=== PATIENT | female | born 1985 | race Caucasian/White ===

== ENCOUNTER 2023-05-19 10:12 | Outpatient (CLI) | payer SELFPAY ==
--- NOTE | ~2023-05-19 | US_ITS ---
Pelvic ultrasound. Clinical History: First trimester , inconclusive viability Technique: Realtime transabdominal and transvaginal scanning of the pelvis was performed. Color flow Doppler and Doppler spectral analysis were performed. Findings: The uterus is anteverted, and contains an intrauterine gestation. Rentz-rump length of 2.3 cm corresponds to an estimated gestational age of 9 weeks 0 days. heart rate is 180 bpm. Yolk s ac also present. The right ovary measures 3.0 x 2.6 x 2.3 cm. No significant right ovarian or adnexal mass is seen. The left ovary is not visualized. No significant left ovarian or adnexal mass is seen. There is no evidence of free fluid in the cul de sac. Impression: Live intrauterine gestation with estimated gestational age of 9 weeks 0 days. heart rate is 180 bpm. Reviewed, dictated and finalized at [facility]. Impression: Live intrauterine gestation with estimated gestational age of 9 weeks 0 days. F etal heart rate is 180 bpm.
== END 2023-05-19 10:13 | disposition home or self-care (01) ==
PROVIDERS: PCP Physician Assistant; Visit Provider Advanced Practice Midwife
DX: O36.80X0 Pregnancy with inconclusive fetal viability, not applicable or unspecified (principal); Z3A.09 9 weeks gestation of pregnancy
CPT/HCPCS: 76801

== ENCOUNTER 2023-11-16 18:46 | Observation (INO) | payer BC, SELFPAY ==
[2023-11-16] VITALS (7 sets, daily range): BP systolic 124–158; BP diastolic 74–105; PULSE 88–100
--- NOTE | 2023-11-16 19:36 | OBADM ---
This patient, Arielle Mccartney, admitted to the OB room OB Post 113 for observation. Patient/family oriented to hospital policies and general routines including ID bracelet, bed and alarms, visiting hours, pain management, procedures, bathroom and other care routines, personal items, smoking policy, room service/diet, and visiting hours. Patient/Family are encouraged to report perceived risks to care and to ask questions if they do not understand what they are told or what they should do.
[2023-11-16 19:51] LABS: Basophils Absolute Auto 0.1 K/mm3 (0.0-0.1); Basophils Percent Auto 0.5 % (0.2-1.2); Eosinophils Absolute Auto 0.1 K/mm3 (0-0.3); Hematocrit 36.5 % (37.0-47.0); Hemoglobin 11.2 g/dL (12.0-15.0); Immature Granulocyte Absolute 0.19 K/mm3 (0.00-0.031); Immature Granulocyte Percent A 1.9 % (0-0.5); Lymphocytes Absolute Auto 1.77 K/mm3 (0.9-3.2); Mean Corpuscular HGB Conc 30.7 g/dl (32-36); Mean Corpuscular Hemoglobin 25.6 pg (26-34); Mean Corpuscular Volume 83.3 fl (80-100); Mean Platelet Volume 12.4 fl (7.4-10.4); Monocytes Absolute Auto 0.7 K/mm3 (0.1-0.6); Neutrophils Percent Auto 71.6 % (45.5-73.1); Platelet Count Result 225 k/mm3 (150-375); Red Blood Count 4.38 M/mm3 (4.2-5.4); Red Cell Distribution Width 14.6 % (11.5-14.5); White Blood Count 9.8 K/mm3 (4.5-10.0)
[2023-11-16 20:00] LABS: Appearance Urine Cloudy (Clear); Bacteria Urine Rare /hpf; Bilirubin Urine Negative (Negative); Blood Urine Negative (Negative); Color Urine Yellow (Yellow); Glucose Urine UA Negative (Negative); Ketones Urine Negative (Negative); Leukocyte Esterase Ur 2+ LEU/UL (NEGATIVE); Nitrate Urine Negative (Negative); Non Pathogenic Casts 0-2; Protein Urine Negative (Negative); RBC Urine 0-2 /hpf (0-2); Specific Grav Ur 1.017 (1.001-1.035); Squamous Epithelial Cell Urine Moderate /hpf (Few); Urobilinogen Urine 0.2 mg/dL (<2.0); pH Urine 6.5 (5.0-9.0)
[2023-11-16 20:01] LABS: Alanine Aminotransferase 17 U/L (6-35); Albumin Level 3.6 g/dL (3.5-5.1); Alkaline Phosphatase 186 U/L (38-126); Anion Gap 6 mmol/L (8-16); Aspartate Amino Transferase 22 U/L (14-36); Bilirubin,Total 0.3 mg/dL (0.2-1.3); Blood Urea Nitrogen 7 mg/dL (7-17); Calcium 9.2 mg/dL (8.4-10.2); Carbon Dioxide 23 mmol/L (22-30); Chloride 104 mmol/L (98-107); Estimated Glomerular Filt Rate > 60; Glucose 88 mg/dL (65-110); Potassium 3.9 mmol/L (3.4-5.0); Sodium 133 mmol/L (137-145); Uric Acid 3.4 mg/dL (2.5-7.5)
[2023-11-16 20:02] LABS: Add Urine Microscopic? YES
[2023-11-16 20:38] LABS: Creatinine Urine 109.2 mg/dL; Total Protein Urine Random 8 mg/dL; Ur Ttl Prot Creatinine Ratio 0.07 mg/mg (0-0.20)
--- NOTE | 2023-11-24 12:06 | P.PNOB_ITS ---
OB - Triage/Final Diagnosis Visit Information Reason for evaluation: threatened labor Comments/Additional reasons for admission: I have assessed the risk for this patient, Arielle Mccartney, and determined that she would benefit from observation care. Evaluation Laboratory results: Laboratory Tests 11/16/23 19:29 WBC 9.8 RBC 4.38 Hgb 11.2 L Hct 36.5 L MCV 83.3 MCH 25.6 L MCHC 30.7 L RDW 14.6 H Plt Count 225 MPV 12.4 H Immature Gran % (Auto) 1.9 H Neut % (Auto) 71.6 Lymph % (Auto) 18.0 L [place] % (Auto) 7.0 Eos % (Auto) 1.0 Baso % (Auto) 0.5 Lymph # (Auto) 1.77 [place] # (Auto) 0.7 H Eos # (Auto) 0.1 Baso # (Auto) 0.1 Abs Immat Gran (auto) 0.19 H Absolute Neuts (auto) 7.0 H Absolute Nucleated RBC 0.0 Nucleated RBC % 0.0 Sodium 133 L Potassium 3.9 Chloride 104 Carbon Dioxide 23 Anion Gap 6 L BUN 7 Creatinine 0.60 L Estim Creat Clear Calc Not Reportable Estimated GFR > 60 Glucose 88 Uric Acid 3.4 Calcium 9.2 Total Bilirubin 0.3 AST 22 ALT 17 Alkaline Phosphatase 186 H Total Protein 7.0 Albumin 3.6 Urine Color Yellow Urine Appearance Cloudy H Urine pH 6.5 Ur Specific [place] 1.017 Urine Protein Negative Urine Glucose (UA) Negative Urine Ketones Negative Ur Blood (Man) Negative Urine Nitrate Negative Urine Bilirubin Negative Urine Urobilinogen 0.2 Ur Leukocyte Esterase 2+ H Urine RBC 0-2 Urine WBC 6-10 Ur Squamous Epith Cells Moderate Urine Bacteria Rare Urine Casts 0-2 U Random Total Protein 8 Urine Creatinine 109.2 Protein/Creat Ratio 2 0.07
== END 2023-11-16 21:10 | disposition home or self-care (01) ==
PROVIDERS: Advanced Practice Midwife; Admitting Provider Obstetrics & Gynecology Gynecology; PCP Physician Assistant; Visit Provider Obstetrics & Gynecology Gynecology
DX: O47.9 False labor, unspecified (principal); Z3A.00 Weeks of gestation of pregnancy not specified
CPT/HCPCS: 36415; 80053; 81001; 82570; 84156; 84550; 85025; G0378; G0379

== ENCOUNTER 2023-12-12 17:38 | Observation (INO) | payer BC, SELFPAY ==
[2023-12-12 17:38] VITALS: PULSE 71; RESP 18; TEMP 36.8; O2SAT 98
--- NOTE | 2023-12-12 21:02 | OBADM ---
This patient, Arielle Mccartney, admitted to the OB room Labor/Delivery/Recovery 104 for observation. Patient/family oriented to hospital policies and general routines including ID bracelet, bed and alarms, visiting hours, pain management, procedures, bathroom and other care routines, personal items, smoking policy, room service/diet, and visiting hours. Patient/Family are encouraged to report perceived risks to care and to ask questions if they do not understand what they are told or what they should do.
--- NOTE | 2023-12-19 07:41 | PM.OBTRLD ---
OB - Triage/Final Diagnosis Visit Information Date of evaluation: 12/12/23 Reason for evaluation: threatened labor Comments/Additional reasons for admission: I have assessed the risk for this patient, Arielle Mccartney, and determined that she would benefit from observation care. Evaluation Comments: Regular ctx, reactive tracing, VSS. No cervical change. DC home with labor precautions.
== END 2023-12-12 21:18 | disposition home or self-care (01) ==
PROVIDERS: Admitting Provider Obstetrics & Gynecology Gynecology; PCP Physician Assistant; Visit Provider Obstetrics & Gynecology Gynecology
DX: O47.9 False labor, unspecified (principal); Z3A.00 Weeks of gestation of pregnancy not specified
CPT/HCPCS: G0378; G0379

== ENCOUNTER 2023-12-13 01:03 | Inpatient (IN) | payer BC, SELFPAY ==
[2023-12-13] VITALS (208 sets, daily range): BP systolic 90–143; BP diastolic 44–96; PULSE 69–103; TEMP 36.2–37; O2SAT 90–100; BMI 41.3
[2023-12-13] MEDS: fentaNYL CITRATE INJ (*CRX) 100 MCG/2 ML VIAL IV PUSH (01:22)
[2023-12-13] MEDS: LACTATED RINGERS 1,000 ML 125 ML IV CONT ×4 (01:26→18:46)
[2023-12-13 01:29] LABS: Basophils Absolute Auto 0.1 K/mm3 (0.0-0.1); Basophils Percent Auto 0.4 % (0.2-1.2); Eosinophils Percent Auto 0.2 % (0-4.4); Hematocrit 38.6 % (37.0-47.0); Hemoglobin 12.2 g/dL (12.0-15.0); Immature Granulocyte Absolute 0.21 K/mm3 (0.00-0.031); Immature Granulocyte Percent A 1.4 % (0-0.5); Immature Platelet Fraction Pct 17.9 % (0.9-11.2); Lymphocytes Absolute Auto 2.69 K/mm3 (0.9-3.2); Lymphocytes Percent Auto 17.5 % (18.3-44.2); Mean Corpuscular HGB Conc 31.6 g/dl (32-36); Mean Corpuscular Hemoglobin 25.7 pg (26-34); Mean Corpuscular Volume 81.4 fl (80-100); Mean Platelet Volume 13.7 fl (7.4-10.4); Monocytes Absolute Auto 0.8 K/mm3 (0.1-0.6); Monocytes Percent Auto 5.3 % (2.6-8.5); Neutrophils Absolute Auto 11.6 K/mm3 (1.3-6.7); Neutrophils Percent Auto 75.2 % (45.5-73.1); Platelet Count Result 220 k/mm3 (150-375); Red Blood Count 4.74 M/mm3 (4.2-5.4); Red Cell Distribution Width 14.7 % (11.5-14.5); White Blood Count 15.4 K/mm3 (4.5-10.0)
[2023-12-13 01:36] LABS: Glucose Point of Care 132 mg/dl (65-105)
--- NOTE | 2023-12-13 01:52 | WPDANESEPP ---
Anes - Eval Pre Procedure Procedure: labor epidural Date/Time: 12/13/23 01:52 Surgeon: mike Preop Diagnosis: pain during labor Pre Op Diagnosis: IOL Patient Data Age: 38 Gender: F Height: Weight: Last Vital Signs Pulse 75 12/13/23 01:46 BP 135/75 12/13/23 01:46 Pulse Ox 100 12/13/23 01:48 Allergies Allergy/AdvReac Type Severity Reaction Status Date / Time amoxicillin Allergy Unknown Unknown Verified 11/29/23 13:25 Home Medications Medication Instructions Recorded Confirmed Type aspirin 81 mg capsule 81 mg PO DAILY 11/22/23 11/29/23 History insulin NPH isoph U-100 human 100 62 unit subcut HS 11/22/23 11/29/23 History unit/mL (3 mL) subcutaneous pen (Novolin N FlexPen) vits no.126-ferrous fum 1 tablet PO DAILY 11/22/23 11/29/23 History 28 mg iron-folic acid 800 mcg tablet (Classic ) sertraline 100 mg tablet 100 mg PO DAILY 11/22/23 11/29/23 History cholecalciferol (vitamin D3) 125 125 mcg PO DAILY 11/29/23 11/29/23 History mcg (5,000 unit) capsule vitamin B complex (B 1 tablet PO DAILY 11/29/23 11/29/23 History Complex-Vitamin B12 tablet) Laboratory Tests 12/13/23 12/13/23 01:19 01:30 WBC 15.4 H K/mm3 (4.5-10.0) RBC 4.74 M/mm3 (4.2-5.4) Hgb 12.2 g/dL (12.0-15.0) Hct 38.6 % (37.0-47.0) MCV 81.4 fl (80-100) MCH 25.7 L pg (26-34) MCHC 31.6 L g/dl (32-36) RDW 14.7 H % (11.5-14.5) Plt Count 220 k/mm3 (150-375) MPV 13.7 H fl (7.4-10.4) Immature Gran % (Auto) 1.4 H % (0-0.5) Neut % (Auto) 75.2 H % (45.5-73.1) Lymph % (Auto) 17.5 L % (18.3-44.2) [place] % (Auto) 5.3 % (2.6-8.5) Eos % (Auto) 0.2 % (0-4.4) Baso % (Auto) 0.4 % (0.2-1.2) Lymph # (Auto) 2.69 K/mm3 (0.9-3.2) [place] # (Auto) 0.8 H K/mm3 (0.1-0.6) Eos # (Auto) 0.0 K/mm3 (0-0.3) Baso # (Auto) 0.1 K/mm3 (0.0-0.1) Abs Immat Gran (auto) 0.21 H K/mm3 (0.00-0.031) Absolute Neuts (auto) 11.6 H K/mm3 (1.3-6.7) Absolute Nucleated RBC 0.0 K/mm3 (0.0-0.012) Nucleated RBC % 0.0 % (0.0-0.2) % Immature Plt Fraction 17.9 H % (0.9-11.2) POC Capillary Glucose 132 H mg/dl (65-105) RPR Pending Patient hx anesthesia problems: none Family hx anesthesia problems: none Results Review: All pre-operative results and documents have been reviewed as part of the pre-operative evaluation. [facility] Past Medical History Medical History (Updated 11/29/23 @ 13:45 by RUKHSANA Stoddard) Anxiety Depression GERD (gastroesophageal reflux disease) Gestational diabetes Family History Family History Grandparent Cerebrovascular accident Acute myocardial infarction Diabetes mellitus Hypertension Grandparent Cerebrovascular accident Acute myocardial infarction Diabetes mellitus Grandparent Acute myocardial infarction Hypertension Grandparent Acute myocardial infarction Mother Diabetes mellitus Breast cancer Social History Social History (Updated 11/29/23 @ 13:28 by Dione Willett MA) Smoking status: Never smoker Alcohol intake: current Alcohol use details: rarely Substance use: never Spiritual care concerns: No Exam Day of Procedure 12/13/23 01:52
--- NOTE | 2023-12-13 03:12 | LDADM ---
This patient, Arielle Mccartney, was admitted to Labor/Delivery/Recovery 105 on 12/13/23 at 01:03. Plans for labor, pain management and were discussed with patient. Patient/family oriented to hospital policies and general routines including ID bracelet, bed and alarms, visiting hours, pain management, procedures, bathroom and other care routines, personal items, smoking policy, room service/diet and guest tray routines, infant security routines, and visiting hours. Patient/Family are encouraged to report perceived risks to care and to ask questions if they do not understand what they are told or what they should do. See OBIX for further documentation.
[2023-12-13 03:27] LABS: Glucose Point of Care 133 mg/dl (65-105)
[2023-12-13 06:24] LABS: Glucose Point of Care 152 mg/dl (65-105)
--- NOTE | 2023-12-13 07:27 | WPDOBADMIT ---
Obstetrics - Admit Note Admission Note: record reviewed. No pertinent additions to the history and/or any subsequent changes in the physical findings that are not consistent with the expected course of the were found. Additions to the history and/or subsequent changes in the physical findings follow Pt admitted with SROM of meconium stained fluid.
--- NOTE | 2023-12-13 07:28 | PM.OBPNLAB ---
Pain Control Date/time seen: 12/13/23 07:25 Pain control: tolerating well and epidural Pelvic Exam Dilation (cm): 1 (1.5) Effacement (%): 80 station: -2 Amniotic membrane status: Ruptured Contractions Monitor mode: External Contraction pattern: Irregular Status status: Category ll Assessment and Plan Plan: continuous present management Comments: CNM to bedside. Discussed plan of care with Arielle and her spouse. Discussed placement of IUPC to help evaluate ctx and labor status. Pt agreeable. SVE performed. IUPC inserted easily and light green fluid returned in catheter. Plan to increase pitocin as needed to achieve adequate contraction pattern. Anticipate vaginal . Dr. Mcdermott updated.
[2023-12-13 07:34] LABS: Glucose Point of Care 110 mg/dl (65-105)
[2023-12-13] MEDS: OXYTOCIN 30 UNITS/NS 500 ML 30 UNITS/500 ML BAG 6 UNITS IV CONT (08:28)
[2023-12-13 10:50] LABS: Glucose Point of Care 128 mg/dl (65-105)
[2023-12-13 12:08] LABS: Glucose Point of Care 92 mg/dl (65-105)
[2023-12-13] MEDS: ONDANSETRON INJ 4 MG/2 ML VIAL IV PUSH (12:46)
[2023-12-13 15:02] LABS: Glucose Point of Care 105 mg/dl (65-105)
[2023-12-13 15:29] LABS: Rapid Plasma Reagin Non-Reactive (NonReactive)
--- NOTE | 2023-12-13 17:14 | PM.OBPNLAB ---
Pain Control Date/time seen: 12/13/23 17:14 Pain control: tolerating well and epidural Comments: Feeling a window of pain in the RLQ. Pelvic Exam Comments: Recent SVE by RN 5cm Contractions Monitor mode: Internal Contraction pattern: Regular Intrauterine tone measurement: 260 Status status: Category ll Assessment and Plan Pitocin rate (mU/min): 18 Assessment: induction ongoing Plan: continuous present management Comments: CNM at bedside. Plan to decrease pitocin d/t MVUs 260 mmHg. Reposition to allow for pain relief in RLQ. Plan position change to hands and knees in near future. No evidence of infection. Discussed plan of care with Arielle and spouse. Anticipate vaginal . Dr. Mcdermott updated.
[2023-12-13 18:14] LABS: Glucose Point of Care 104 mg/dl (65-105)
[2023-12-13] MEDS: SODIUM CHLORIDE 0.9% IV 600 ML 999 ML I-UTERINE (18:26)
[2023-12-13] MEDS: ceFAZolin 2 GM in SODIUM CHLORIDE 0.9% IV 50 ML 100 ML IVPB (19:11)
[2023-12-13 19:56] LABS: Glucose Point of Care 90 mg/dl (65-105)
[2023-12-13 21:48] LABS: Glucose Point of Care 94 mg/dl (65-105)
[2023-12-14] VITALS (43 sets, daily range): BP systolic 107–132; BP diastolic 53–77; PULSE 78–116; RESP 16–18; TEMP 36.3–36.9; O2SAT 91–100
[2023-12-14] MEDS: OXYTOCIN 30 UNITS/NS 500 ML 30 UNITS/500 ML BAG 125 UNITS IV CONT ×2 (00:31→01:24)
[2023-12-14] MEDS: LIDOCAINE HCL 1% LOCAL INJ 20 ML VIAL (00:59)
[2023-12-14] MEDS: miSOPROStol 200 MCG TABLET 800 MCG RECTAL (01:46)
--- NOTE | 2023-12-14 01:56 | PM.OBPRVD ---
OB - Vaginal Delivery Note Procedure Delivery date: 12/14/23 Events: Gestational Diabetes (GDMA2) and Other (Prolonged ROM) Induction method: None Delivery augmentation: Pitocin Delivery monitor: External FHT and Internal Uterine Route of delivery: Episiotomy description: None Laceration Description: Periurethral, Perineal - 2nd Degree and Other (left sulcus) Delivery repair: vicryl Specimen: Yes (placenta) Quantitative Blood Loss (ml): 1,200 Anesthesia type: Epidural Disposition: Floor Complications: Other complications (hemorrhage) Narrative: Patient arrived after spontaneous rupture membranes with meconium-stained fluid. She made slight cervical change in effacement. She was augmented with Pitocin. She received an epidural for analgesia. She progressed to complete dilation and pushed with contractions. There was gradual delivery of the head after which no restitution was observed. Patient was assisted to Whiteside position and there continued to be no restitution and no descent of the anterior shoulder. CNM palpated posteriorly but was unable to palpate elbow. Suprapubic pressure was applied by the nursing staff and there was delivery of the anterior followed by the posterior shoulder as well as remainder of the infant. The infant was placed on maternal abdomen and dried and stimulated by the nursery staff the cord was doubly clamped and cut before 1 minute of life. Cord blood, cord gases, and cord segment were obtained. At 32 minutes there was spontaneous delivery of the placenta. Trailing membranes and a fragment of placental tissue were removed after that time. There was a left sulcus tear that was repaired first due to brisk bleeding and second-degree perineal laceration with vaginal tunneling repaired in the usual fashion. A excess flap of the left labia was unable to be reapproximated. After discussion with the patient and her partner they consented to the small excision of this tissue. The remainder of the perineum was repaired in the usual fashion. All delivery counts correct uterine tone remained firm throughout. [place] Baby Date of : 12/14/23 Time of : 00:08 Weeks of gestation at delivery: 38 gender: Male Weight (pounds): 7 Weight (ounces): 15 presentation: vertex position: Other (OA) Placenta delivery description: Spontaneous (Delivered after 30 minutes following ) and Abnormal Configuration Cord Vessel Description: 3 Vessels and Clamped/Cut score one minute: 4 score five minutes: 8
--- NOTE | 2023-12-14 02:13 | PM.OBDSVD ---
DS: Admitting Diagnosis Discharge Date 12/16/23 Admitting Diagnosis 38 y.o. at 38 weeks Spontaneous ROM with meconium GDMA2 Anxiety and Depression Marginal cord insertion PCOS DS: Discharge Diagnosis Discharge Diagnosis (1) (normal spontaneous vaginal delivery): Code(s): O80 - Encounter for full-term uncomplicated delivery Status: Acute (2) GDM, class A2: Code(s): O24.419 - Gestational diabetes mellitus in , unspecified control Status: Acute (3) Mother currently breast-feeding: Code(s): Z39.1 - Encounter for care and examination of lactating mother Status: Acute (4) hemorrhage: Code(s): O72.1 - Other immediate hemorrhage Status: Acute (5) High vaginal laceration during delivery, delivered: Code(s): O71.4 - Obstetric high vaginal laceration alone Status: Acute OB - DS: Summary Hospital Course Hospital Course: Uncomplicated OB Procedures : NST and Ultrasound OB Procedures Intrapartum: Spontaneous Vag Delivery and Other (antibiotics for prolonged ROM) OB Procedures: : Antibiotics Peripartum Data Delivery Method: Natural Vaginal Laceration Description: Periurethral, Perineal - 2nd Degree and Other (left sulcus) Episiotomy description: None complications: perineal laceration and other (hemorrhage) Status at Discharge Functional status at discharge: independent ambulation Overall status at discharge: patient is progressing back to baseline Time Spent with Patient Time attestation: Total time spent providing and/or coordinating discharge services: Exam Narrative: Alert and oriented. Mood is pleasant and cooperative. Perineum with mild edema. Fundus firm and below umbilicus. Const: General: cooperative, healthy appearing, no acute distress and alert Orientation/consciousness: patient oriented x3 Limitations: no limitations Resp: Effort & Inspection: normal respiratory effort and able to speak in complete sentences Auscultation: clear to auscultation bilaterally Cardio: Rate: regular rate GI: Inspection: normal to inspection Auscultation: normal bowel sounds : General: Yes bladder normal to palpation External Female Exam: other (lochia WNL) Bimanual exam- vagina & uterus: bladder normal to palpation Other: Fundus firm and below U Skin: General skin exam: normal color and no rashes or lesions noted Neuro: General: patient oriented x3 and moves all extremities Cognition (Neuro): normal cognition Extrem: General: normal to inspection and no calf tenderness Psych: Appearance: grossly normal Mental Status: mental status grossly normal Affect: normal affect Thought process: Normal thought process present DS: Data Data Completed and Pending Pending studies at discharge: Pending at discharge 12/14/23 01:09 Surgical [PTH] Routine Labs on day of discharge: Labs from last 24 hours 12/13/23 12/13/23 12/13/23 21:43 19:51 17:02 POC Capillary Glucose 94 90 104 RPR Blood Type Antibody Screen 12/13/23 12/13/23 12/13/23 14:55 12:06 10:15 POC Capillary Glucose 105 92 128 H RPR Blood Type Antibody Screen 12/13/23 12/13/23 12/13/23 07:31 06:22 03:24 POC Capillary Glucose 110 H 152 H 133 H RPR Blood Type Antibody Screen 12/13/23 01:19 POC Capillary Glucose RPR Non-reactive Blood Type O Positive Antibody Screen Negative Discharge Plan Discharge Attending physician on discharge: Bridget Mcdermott Discharging Clinician: Esme Persaud Anticipated Discharge Date/Time: 12/16/23 10:00 Patient Disposition: Home, Self-Care Activity: may shower and pelvic rest Diet: as tolerated Wound Care Instructions: follow printed instructions Discharge Instructions: Continue taking your vitamin and any other supplements as previously directed (Examples: Iron, Vitami
[2023-12-14] MEDS: IBUPROFEN 600 MG TABLET PO ×3 (03:48→22:30)
--- NOTE | 2023-12-14 04:02 | OBPPTRN ---
Patient transferred to post room #290 via W/C. Support person present. Oriented to unit, room, information board, rooming in, admission packet and security measures. Patient verbalizes understanding.
[2023-12-14] MEDS: POLYSACCHARIDE IRON COMPLEX 150 MG CAPSULE PO ×2 (08:14→15:41)
[2023-12-14] MEDS: DOCUSATE SODIUM 100 MG CAPSULE PO ×2 (08:14→15:41)
[2023-12-14] MEDS: ACETAMINOPHEN 325 MG TABLET 650 MG PO ×2 (09:26→22:30)
--- NOTE | 2023-12-14 10:37 | PC.NURSE ---
[id number] Introductions were made, then consulted with patient to assess needs related to . Mother led the conversation with her?plans to feed?her infant, the?experience so far and difficulty with tiredness along with perineal pain. Encouraged mother to use the restroom and called for pain medication. Blood sugar was resulted at 71mg/dl and mother laid-back in bed for comfort. Encouraged understanding of the benefits of skin to skin (demonstrating unwrapping and placing upright on her chest), stimulating with massage touch, changing positions to encourage wakefulness, how to watch for early feeding cues, responsive feeding, feeding on demand (aiming for 8-12 times in 24 hours, about every 2-3 hours), milk production, hand expression, building/maintaining a milk supply, duration of feeding, signs of adequate intake/output and how to record on the feeding sheet. Mother works well with her infant with encouragement and education. Infant is sleepy and reluctant, however; after [id number], encouraging stimulation, finger feeding EBM feeding cues were visualized. We reviewed positioning and ear, shoulder, hip alignment, supporting the breast to facilitate a deep latch, asymmetrical latch (off-center), leading with the chin with a big, open, wide gape and body close to mother. Infant latched optimally to the right breast in football position. Education given to the mother of how to visualize the suckling (with good rocking jaw motion), swallows (dropping of the lower jaw) and how to listen for drinking at the breast (the ka sound) which did demonstrate briefly, then would not attempt to latch to the left breast. Infant was to maintain latch without pain a few times but mostly would latch to the nipple. Reminded mother to protect the nipple with optimal positioning and latching. Reviewed comfort measures of healing with a warm, wet washcloth to rinse breast, then leave open to air-dry, good handwashing when or touching the breast/nipples to prevent infection. Mother voiced understanding of skin to skin, stimulating with massage touch, responsive feedings, hand expressed colostrum, talking to infant to encourage if it has been 2 -2.5 hours since the start of the last , to call if infant does not latch, or if there is discomfort with . Resources used for education were facilitated with the visual educational handouts, tool, mom and baby guide. Inpatient/outpatient resources provided with feeding sheet, name written on the communication board, and the mom/baby guide. Parents voiced understanding of information, demonstrated learning, left [id number] with dad providing watch for safety, and will call if there is a request for assistance. Reported to the Primary RN.
[2023-12-14 13:36] LABS: Hematocrit 27.5 % (37.0-47.0); Hemoglobin 8.6 g/dL (12.0-15.0)
--- NOTE | 2023-12-14 13:42 | PC.NURSE ---
[id number] Consulted with patient to assess needs related to after being requested. Encouraged mother to stimulate to wake to breastfeed. Demonstrated massage touch, changing position, and changed a wet diaper. We reviewed working with the , supporting breast, protecting her nipples with an optimal deep latch, good positioning, and good hand washing. Encouraged understanding the benefits of skin to skin, responding to feeding cues, and visualized infants demonstration of feeding cues. Hand expressed drops of colostrum, then reviewed positioning and alignment, supporting breast, off-centered (asymmetrical latch) and leading with the chin with big, open, wide gape. latched optimally to the left breast in cross cradle position. Education given to the mother of how to visualize the suckling (with good rocking jaw motion) swallows (dropping of the lower jaw) and how to listen for drinking at the breast (the ka sound) and demonstrated good rocking jaw motion with a drop in the jaw with suck swallow ratios of 2:1 or 3:1. The was able to maintain latch without discomfort to mother. Father of baby was given ideas of how to support the dyads journey. Nipple care reviewed with optimal latch, good positioning and using clean hands when touching her breast. Resources used to facilitate learning were used from the visual handouts, tool, feeding sheet along with the mom and baby guide. Mother voiced understanding of the education shared, to call for assistance if the does not latch, difficulty waking infant to breastfeed, or if there is discomfort with . Reported to the Primary RN.
--- NOTE | 2023-12-14 15:17 | PC.NURSE ---
[id number] Purposefully rounded to assess for needs. is quiet, alert, and awake in the bassinet demonstrating feeding cues. Parents acknowledge this and are encouraged with offer of assistance to latch infant to the breast. Encouraged responding to the feeding cues and parents state they just attempted and do not want to attempt at this time but will attempt in one hour. Parents agreed to have check in with them in the morning to check on needs. Reported to the Primary RN.
[2023-12-15] MEDS: POLYSACCHARIDE IRON COMPLEX 150 MG CAPSULE PO ×2 (07:30→16:01)
[2023-12-15] MEDS: IBUPROFEN 600 MG TABLET PO ×2 (07:30→16:00)
[2023-12-15] MEDS: DOCUSATE SODIUM 100 MG CAPSULE PO ×2 (07:30→16:01)
[2023-12-15] MEDS: LANOLIN (LANSINOH) 7.5 GM CREAM 1 APPLIC TOPICAL (07:32)
[2023-12-15 07:45] VITALS: BP 122/75; PULSE 81; RESP 18; TEMP 36.5; O2SAT 98
--- NOTE | 2023-12-15 07:48 | PM.OBPNVD ---
OB - PN: Subj Subjective Date/time seen: 12/15/23 07:48 Patient comments: no complaints and pain well controlled baby status: doing well OB - PN: Obj Data Labs 12/14/23 13:28 Labs: Laboratory Results - last 24 hr 12/14/23 13:28 Hgb 8.6 L D Hct 27.5 L OB - PN A/P Plan day: 1 Plan: routine care Time Spent With Patient Time: Total time spent is greater than 50% in coordination of care (as documented) at patient's floor/unit and/or counseling patient: Exam : Bimanual exam- vagina & uterus: other (Uterus firm, nt @U)
--- NOTE | 2023-12-15 09:16 | WPDANLDPN2 ---
Anes-Prog Note L&D Date/Time: 12/15/23 09:16 Comfortable throughout: labor and delivery Neuraxial method: epidural Epidural/Spinal procedure site: clean & non-tender Neuro status: Neuro function grossly intact. Cardiovascular status: normal Respiratory status: normal Airway patency: baseline Mental status: baseline Post-Op hydration status: normal Vital Signs: Last Vital Signs Temp 36.5 C 12/15/23 07:45 Pulse 81 12/15/23 07:45 Resp 18 12/15/23 07:45 BP 122/75 12/15/23 07:45 Pulse Ox 98 12/15/23 07:45 O2 Del Method Room Air 12/14/23 19:50 Pain score (VAS): 11/30 I/O: Intake & Output 12/14/23 12/15/23 12/15/23 23:59 07:59 15:59 Intake Total 240 Balance 240 Post-procedural complaints: none Patient feedback: Patient satisfied with anesthetic care.
[2023-12-15] MEDS: ACETAMINOPHEN 325 MG TABLET 650 MG PO ×2 (12:08→19:05)
--- NOTE | 2023-12-15 14:06 | PC.NURSE ---
[id number] Mother has been using her own personal pump, however; a hospital Breast pump provided due to separation and incorrect flange. Instructions given on cleaning, care, usage, that there should be no pain, pumping schedule for milk production, collection, and storage of human milk. Patient was assessed for correct placement, flange size, to pump for comfort and nipple stretching/stimulation for adequate milk production every 3 hours (8 times in 24 hours) 1-2 times at night. Mother is encouraged to record the pumping schedule on the feeding sheet.?Mother voiced understanding of the education shared along with mom/baby guide and the pump measurement, flange fit handout for additional resource information. [id number] Mother collected her 0.5ml EBM into a syringe for the next feeding.
[2023-12-15 19:00] VITALS: BP 137/80; PULSE 89; RESP 18; TEMP 36.4
[2023-12-16 07:45] VITALS: BP 128/83; PULSE 90; RESP 18; TEMP 36.7; O2SAT 99
--- NOTE | 2023-12-16 07:59 | P.PNOB_ITS ---
OB - PN: Subj Subjective Date/time seen: 12/16/23 07:10 Interval history: Doing well. Urinating without difficulty. Denies passing any large clots. Denies dizziness with ambulating. Tolerating po food and fluids. Bonding with . Breast pumping. Patient comments: no complaints and pain well controlled [place] baby status: bottle feeding well [place] feeding status: breast and bottle feeding OB - PN: Obj Data Labs 12/14/23 13:28 OB - PN A/P Plan day: 2 Plan: discharge home Time Spent With Patient Time: Total time spent is greater than 50% in coordination of care (as documented) at patient's floor/unit and/or counseling patient: Review of Systems Review of Systems: All systems reviewed & are unremarkable except as noted in HPI and below Exam Narrative: Alert and oriented. Mood is pleasant and cooperative. Perineum with mild edema. Fundus firm and below umbilicus. Const: General: cooperative, healthy appearing, no acute distress and alert Orientation/consciousness: patient oriented x3 Limitations: no limitations Resp: Effort & Inspection: normal respiratory effort and able to speak in complete sentences Auscultation: clear to auscultation bilaterally Cardio: Rate: regular rate GI: Inspection: normal to inspection Auscultation: normal bowel sounds : General: Yes bladder normal to palpation External Female Exam: other (lochia WNL) Bimanual exam- vagina & uterus: bladder normal to palpation Other: Fundus firm and below U Skin: General skin exam: normal color and no rashes or lesions noted Neuro: General: patient oriented x3 and moves all extremities Cognition (Neuro): normal cognition Extrem: General: normal to inspection and no calf tenderness Psych: Appearance: grossly normal Mental Status: mental status grossly normal Affect: normal affect Thought process: Normal thought process present
[2023-12-16] MEDS: DOCUSATE SODIUM 100 MG CAPSULE PO ×2 (08:47→17:35)
[2023-12-16] MEDS: POLYSACCHARIDE IRON COMPLEX 150 MG CAPSULE PO ×2 (08:47→17:34)
[2023-12-16] MEDS: ACETAMINOPHEN 325 MG TABLET 650 MG PO (08:51)
--- NOTE | 2023-12-16 16:30 | PC.NURSE ---
[id number] Reviewed the breast shield size for the best fit to mother to protect a robust milk supply. We only have a 21mm flange and the best fit would be 17-19mm. Father of baby has ordered the correct size. Reminded parents of instructions of cleaning, care, usage, that there should be no pain, pumping schedule for milk production, collection, and storage of human milk. Patient encouraged to pump for comfort and nipple stretching/stimulation for adequate milk production every 3 hours (8 times in 24 hours) 1-2 times at night. Parents are encouraged to record the pumping schedule on the feeding sheet.?Parents voiced understanding of the education shared along with mom/baby guide and the pump measurement, flange fit handout for additional resource information done on a prior visit. Reviewed safe sleep habits with parents and they voiced understanding. Reported to the Primary RN.
[2023-12-19 13:58] VITALS: BP 126/87; PULSE 95; RESP 18; TEMP 36.7; O2SAT 99
== END 2023-12-16 22:00 | disposition home or self-care (01) | DRG 806 ==
LOC: ANHLDR 12-14 02:18 → ANHOB2 12-14 04:08
PROVIDERS: Advanced Practice Midwife; Admitting Provider Obstetrics & Gynecology Gynecology; PCP Physician Assistant; Visit Provider Obstetrics & Gynecology Gynecology
DX: O42.02 Full-term premature rupture of membranes, onset of labor within 24 hours of rupture (principal); O72.1 Other immediate postpartum hemorrhage; Z37.0 Single live birth; O69.81X0 Labor and delivery complicated by cord around neck, without compression, not applicable or unspecified; Z3A.38 38 weeks gestation of pregnancy; O70.1 Second degree perineal laceration during delivery; O24.429 Gestational diabetes mellitus in childbirth, unspecified control; O77.0 Labor and delivery complicated by meconium in amniotic fluid; O71.82 Other specified trauma to perineum and vulva
CPT/HCPCS: 36415; 82948; 85014; 85018; 85025; 85055; 86592; 86850; 86900; 86901; 88307; A9270; G0378; G0379; J0690; J2405; J2590; J2795; J3010; J7030; J7120

== ENCOUNTER 2024-01-31 10:00 | Outpatient (CLI) | payer BC, SELFPAY ==
[2024-01-31 13:39] LABS: Alanine Aminotransferase 25 U/L (6-35); Albumin Level 4.3 g/dL (3.5-5.1); Alkaline Phosphatase 77 U/L (38-126); Amylase 65 U/L (30-110); Aspartate Amino Transferase 27 U/L (14-36); Bilirubin,Total 0.3 mg/dL (0.2-1.3); Lipase 94 U/L (23-300)
== END 2024-01-31 10:01 | disposition home or self-care (01) ==
LOC: ANHSURGERY 10:03
PROVIDERS: PCP Physician Assistant; Visit Provider Surgery
DX: Z01.818 Encounter for other preprocedural examination (principal); K80.10 Calculus of gallbladder with chronic cholecystitis without obstruction
CPT/HCPCS: 36415; 80076; 82150; 83690

== ENCOUNTER 2024-02-06 01:31 | Day surgery (SDC) | payer BC, SELFPAY ==
[2024-01-30 15:08] VITALS: BMI 40.0
--- NOTE | 2024-01-30 15:12 | PC.NURSE ---
Report to the Outpatient Waiting Room, entrance under the green pavilion located off [facility], at time 7:00 on date 02/06/24. Planned Procedure Time: 9:00. Time changes happen often and if your time is changed the preop area will call you the afternoon before. - You and your visitor will be asked to self-screen and do not enter if you have any COVID symptoms. - A mask is optional within the hospital at this time. Patients may have clear liquids (water, carbonated beverages, clear teas, apple juice) until 3 hours prior to surgery (6:00) with a maximum of 20 ounces. - No food from midnight until time of surgery Take the following medications with a SIP of water the morning of surgery: NONE DO NOT STOP ANY OF YOUR OTHER PRESCRIPTION MEDICATIONS PRIOR TO SURGERY ?EXCEPT THE FOLLOWING Medications to discontinue per physician: VITAMINS/SUPPLEMENTS Date to take last dose: 02/02/24 Please no make-up, nail slovenian, hairspray, perfume, deodorant, or body powder the day of surgery. No jewelry (including any body piercings) or valuables the day of surgery, leave them at home. Please take a shower or bath the night before, or the morning of, surgery with an antibacterial soap. Wear comfortable, loose fitting clothing. - Jewelry must be removed prior to entering the operating room. Rings and piercings that are not removed may be cut off. - The hospital will not accept responsibility for valuables. - Please leave all valuables, including medications, at home the day of surgery. If you are going home after surgery, a licensed septic pump truck driver must drive you home. - NO public transportation without another adult if you receive anesthesia. - We recommend that an adult stay with you for 24 hours following discharge. - We also recommend that you do not drive, make important decision, drink alcoholic beverages, or take any drugs that were not prescribed by your health care provider for at least 24 hours after your discharge time. Follow any additional instructions given to you from your surgeon. If you or anyone in your household have experienced Covid symptoms in the past week, please notify your surgeon or the nurse liaison at the phone number below for possible testing. Telephone instructions given to PT - YRIS BRITO and asked if any additional questions and then verbalized understanding. Patient advised to call surgeon office or pre surgery nurse liaison [phone] if any additional questions.
[2024-02-06] VITALS (11 sets, daily range): BP systolic 107–141; BP diastolic 52–90; PULSE 73–99; RESP 12–20; TEMP 36.1–36.4; O2SAT 88–99; BMI 41.3
--- NOTE | 2024-02-06 07:48 | P.PNAN_ITS ---
Anes - Initial Pre Proc Eval Procedure: Operation Date: 02/06/24 09:00 Proposed Procedures p Laparoscopic Cholecystectomy - Gracia Viveros MD Date/Time: 02/06/24 07:48 Surgeon: Gracia Viveros MD Pre Op Diagnosis: chronic calculous cholecystitis, Patient Data Age: 38 Gender: F Height: 1.75 m Weight: 127 kg Allergies Allergy/AdvReac Type Severity Reaction Status Date / Time amoxicillin Allergy Unknown Itching Verified 01/30/24 15:06 Home Medications Medication Instructions Recorded Confirmed Type vits no.126-ferrous fum 1 tablet PO HS 11/22/23 01/30/24 History 28 mg iron-folic acid 800 mcg tablet (Classic ) sertraline 100 mg tablet 100 mg PO HS 11/22/23 01/30/24 History cholecalciferol (vitamin D3) 125 125 mcg PO HS 11/29/23 01/30/24 History mcg (5,000 unit) capsule vitamin B complex (B 1 tablet PO HS 11/29/23 01/30/24 History Complex-Vitamin B12 tablet) norethindrone (contraceptive) 0.35 0.35 mg PO HS 01/30/24 01/30/24 History mg tablet Patient hx anesthesia problems: none Family hx anesthesia problems: none Results Review: All pre-operative results and documents have been reviewed as part of the pre-operative evaluation. [facility] Past Medical History Medical History (Updated 12/14/23 @ 02:15 by Esme Persaud CNM) Anxiety Depression GERD (gastroesophageal reflux disease) Gestational diabetes Family History Family History Grandparent Cerebrovascular accident Acute myocardial infarction Diabetes mellitus Hypertension Grandparent Cerebrovascular accident Acute myocardial infarction Diabetes mellitus Grandparent Acute myocardial infarction Hypertension Grandparent Acute myocardial infarction Mother Diabetes mellitus Breast cancer Social History Social History (Updated 11/29/23 @ 13:28 by Dione Willett MA) Smoking status: Never smoker Alcohol intake: never Alcohol use details: rarely Substance use: never Substance use type: does not use Do You Feel Safe in your Home?: Yes Lack of Transportation: No Lack of Food: Never True Current Housing: I Have Housing Concerned About Future Housing: No Difficulty Paying Gas/Electric Bills: No Difficulty Paying for Meds: No Currently Unemployed: No Education: Associate Degree Difficulty w/ Childcare or Family Care: No Living arrangements: with family Spiritual care concerns: No Anes - Eval Final PreProcedure Day of Procedure 02/06/24 07:48 Patient weight: morbidly obese Heart: regular rate and rhythm Lungs: clear to auscultation Airway: Mallampati scale class II Neurological: alert and oriented Last oral intake: >/= 8 hours ASA classification: III Emergent: no Anesthetic plan: proceed Anesthesia type and monitoring: general ETT and standard monitoring Results Review: All pre-operative results and documents have been reviewed as part of the pre- operative evaluation. Informed Consent: The patient's anesthetic plan and its attendant risks and benefits were discussed with the patient/family/POA. Questions were solicited and answers provided to the satisfaction of the patient/family/POA.
[2024-02-06] MEDS: LACTATED RINGERS 1,000 ML 30 ML IV CONT ×2 (07:50→10:23)
[2024-02-06] MEDS: KETOROLAC 15 MG/ML VIAL (*BKC) IV PUSH (08:03)
[2024-02-06] MEDS: ACETAMINOPHEN 500 MG TABLET 1000 MG PO (08:03)
--- NOTE | 2024-02-06 09:06 | PM.IMHP ---
H&P: HPI History of Present Illness Date/Time: 02/06/24 09:06 Chief Complaint: abdominal pain Narrative: Arielle is a 38 y/o female who presented to the office for evaluation of her gallbladder at the request of Dr. Mcdermott. She reports having multiple episodes of RUQ pain and vomiting. She has tried a low fat diet with little relief of her symptoms. She denies any diarrhea or bloating. She is now and is setup for interval cholecystectomy. Review of Systems Review of Systems: All systems reviewed & are unremarkable except as noted in HPI and below PMFSH Past Medical History Medical History Anxiety Depression GERD (gastroesophageal reflux disease) Gestational diabetes Family History Family History Grandparent Cerebrovascular accident Acute myocardial infarction Diabetes mellitus Hypertension Grandparent Cerebrovascular accident Acute myocardial infarction Diabetes mellitus Grandparent Acute myocardial infarction Hypertension Grandparent Acute myocardial infarction Mother Diabetes mellitus Breast cancer Social History Social History Smoking status: Never smoker Alcohol intake: never Alcohol use details: rarely Substance use: never Substance use type: does not use Do You Feel Safe in your Home?: Yes Lack of Transportation: No Lack of Food: Never True Current Housing: I Have Housing Concerned About Future Housing: No Difficulty Paying Gas/Electric Bills: No Difficulty Paying for Meds: No Currently Unemployed: No Education: Associate Degree Difficulty w/ Childcare or Family Care: No Living arrangements: with family Spiritual care concerns: No Meds Home Medications and Allergies Home Medications Medication Instructions Recorded Confirmed Type vits no.126-ferrous fum 1 tablet PO HS 11/22/23 02/06/24 History 28 mg iron-folic acid 800 mcg tablet (Classic ) sertraline 100 mg tablet 100 mg PO HS 11/22/23 01/30/24 History cholecalciferol (vitamin D3) 125 125 mcg PO HS 11/29/23 02/06/24 History mcg (5,000 unit) capsule vitamin B complex (B 1 tablet PO HS 11/29/23 02/06/24 History Complex-Vitamin B12 tablet) norethindrone (contraceptive) 0.35 0.35 mg PO HS 01/30/24 01/30/24 History mg tablet Allergies Allergy/AdvReac Type Severity Reaction Status Date / Time amoxicillin Allergy Unknown Itching Verified 02/06/24 08:11 Vital Signs Vital Signs - 24 hr 02/06/24 07:11 Temperature 36.4 C Pulse Rate 79 Respiratory Rate 16 Blood Pressure 139/90 Pulse Oximetry 98 Oxygen Delivery Room Air Exam Const: General: cooperative, comfortable and no acute distress Resp: Auscultation: clear to auscultation bilaterally Cardio: Rate: regular rate Rhythm: regular rhythm GI: Inspection: normal to inspection and non-distended GI Palp: No abdominal tenderness, Yes Soft to palpation, No Tenderness to palpation present (GI), No Guarding due to palpation present (GI) and No Rigid due to palpation Assessment and Plan Assessment and plan (1) Chronic cholecystitis with calculus: Code(s): K80.10 - Calculus of gallbladder with chronic cholecystitis without obstruction Status: Acute Assessment and Plan: setup for cholecystectomy
--- NOTE | 2024-02-06 09:10 | WPDHPUPDATE1 ---
History and Physical Update Update Date/Time: 02/06/24 09:10 History and Physical has been reviewed, including an updated exam of the patient. There are NO changes in the patient's condition. Risks, benefits, and alternatives have been discussed and questions answered. Patient agrees to proceed with procedure.
[2024-02-06] MEDS: ceFAZolin 3 GM/D5W 100 ML 100 ML IVPB (09:15)
--- NOTE | 2024-02-06 10:16 | P.OP_ITS ---
Procedure Note - Detailed Date of Procedure 02/06/24 Pre-op Diagnosis chronic calculous cholecystitis Post-op Diagnosis Same Procedure Performed Laparoscopic cholecystectomy Surgeon Gracia Viveros MD Anesthesia General Indications 38-year-old female presented to the office complaining of postprandial right up per quadrant abdominal pain associated with nausea and vomiting. Workup including imaging significant for cholecystitis, cholelithiasis. Findings Cholecystitis with cholelithiasis Description of Procedure The patient was taken to the operating room placed in the supine position. After adequate induction of general anesthesia, the patient was prepped and draped in normal sterile fashion. A time-out was then performed to verify the patient's identity as well as the procedure being performed. I then made a 5 mm incision in the infraumbilical region. Through this, a Veress needle was placed into the peritoneal cavity and CO2 gas was then insufflated. After adequate pneumoperitoneum was achieved, the Veress needle was removed and a 5 mm optiview trocar was placed through this incision under direct visualization. I then placed the laparoscope through this trocar site and under direct visualization placed a further 12 mm subxiphoid port as well as 2 additional 5 mm ports in the right upper abdomen. The gallbladder was then identified and was noted to be moderately inflamed, distended, and full of gallstones. I was able to place a grasper at the dome of the gallbladder and this was retracted anterior and cephalad up over the liver. A 2nd retractor was then placed at the infundibulum and retracted laterally, this allowed visualization of the triangle of Calot. I then was able to visualize the cystic duct in its entirety from its proximal insertion into the gallbladder, to its distal junction with the common hepatic/common bile duct junction. At this point, I carefully skeletonized the proximal cystic duct with the [place] dissector. I then clipped and transected the proximal cystic duct. Next I visualized the cystic artery. Again the artery was skeletonized, clipped, and transected. I then used the Bovie cautery to take down the peritoneal attachments of the gallbladder off the liver bed. Once the gallbladder specimen was completely detached, an endo-pouch was placed through the 12 mm port site. I then placed the gallbladder specimen into the Endo pouch and removed the endo-pouch from the 12 mm port site. The specimen will now be sent to pathology for further review. I then copiously irrigated the right upper quadrant. Hemostasis was noted in the liver bed, the clips were noted to be in good position on both the cystic duct stump and the cystic artery stump. No other pathology was noted in the right upper quadrant. I then moved the laparoscope to the subxiphoid port. No iatrogenic injury or other pathology was noted in the lower abdomen. I then closed the 12 mm trocar site under direct visualization using the Honorio cone and 0 Vicryl suture. At this point, the abdomen was desufflated and all ports removed. All port sites were then closed with 4.O Monocryl subcuticular sutures. Dermabond was placed on each incision. The patient tolerated the procedure well, was extubated in the operating room postoperative and will be transferred to the recovery room in stable condition Estimated Blood Loss 10 Drains No Packing No Pathology Yes Complications No immediate complications Condition Stable Disposition PACU [facility] Billing Surgery - Charge Forward: Surgery Billing
[2024-02-06] MEDS: fentaNYL CITRATE INJ (*CRX) 100 MCG/2 ML VIAL 25 MCG IV PUSH ×2 (10:54→11:00)
[2024-02-06] MEDS: oxyCODONE HCL (*CRX) 5 MG TAB IR PO (11:50)
== END 2024-02-06 13:07 | disposition home or self-care (01) ==
PROVIDERS: PCP Physician Assistant; Visit Provider Surgery
PROC: 0FT44ZZ Resection of Gallbladder, Percutaneous Endoscopic Approach (ICD-10-PCS; CPT 47562; principal; 2024-02-06 09:00)
DX: K80.10 Calculus of gallbladder with chronic cholecystitis without obstruction (principal); K82.8 Other specified diseases of gallbladder; F41.9 Anxiety disorder, unspecified; F32.A Depression, unspecified; K21.9 Gastro-esophageal reflux disease without esophagitis; E66.01 Morbid (severe) obesity due to excess calories; Z68.41 Body mass index [BMI] 40.0-44.9, adult; Z80.3 Family history of malignant neoplasm of breast; Z82.49 Family history of ischemic heart disease and other diseases of the circulatory system
CPT/HCPCS: 47562; 88304; A9270; J0330; J0461; J0690; J1100; J1170; J1596; J1885; J2250; J2405; J2704; J3010; J7030; J7120